=== PATIENT | male | born 1970 | race Caucasian/White ===

== ENCOUNTER 2024-03-14 08:48 | Emergency (ER) | payer OTHER ==
[2024-03-14] MEDS ORDERED: ASPIRIN 81 MG CHEWABLE TABLET ONE (09:18)
[2024-03-14 09:36] LABS: Absolute Basophils 0.1 K/uL (0-0.5); Absolute Eosinophils 0.3 K/uL (0-0.5); Absolute Lymphocytes (CBC) 1.5 K/uL (0.7-4.9); Absolute Monocytes 0.6 K/uL (0.1-1.3); Absolute Neutrophil 5.9 K/uL (1.8-8.0); Eosinophils % 4.1 % (0-4.4); Hematocrit 40.9 % (39.6-49.0); Hemoglobin 13.8 g/dL (13.6-17.9); Lymphocytes % 18.2 % (15.3-44.8); MCH 33.7 pg (27.0-35.0); MCHC 33.9 g/dL (32.0-36.0); MCV 99.4 fL (80-100); MPV 7.7 fL (7.6-11.3); Monocytes % 7.4 % (3.3-12.3); Neutrophils % 69.3 % (41.7-73.7); Nucleated Red Blood Cells % 0.1 % (0-0); Platelets 291 thou/uL (152-406); RBC Red Blood Cell Count 4.11 M/uL (4.33-5.43); Red Cell Distribution Width 13.2 % (12.1-15.2)
[2024-03-14 09:38] LABS: PT Prothrombin Time 10.5 SECONDS (9.4-12.5); Protime INR 0.94
[2024-03-14 09:57] LABS: ALT/SGPT 60 U/L (16-61); AST/SGOT 35 U/L (15-37); Albumin 3.6 g/dL (3.4-5.0); Alkaline Phosphatase 56 U/L (45-117); Anion Gap 7.6 mEq/L (5.0-15.0); BUN Blood Urea Nitrogen 11 mg/dL (7-18); Bicarbonate 28 mEq/L (21-32); Bilirubin Total 0.4 mg/dL (0.2-1.0); Globulin 3.6 g/dL (2.3-3.5); Glomerular Filtration Rate 76 ml/min (=/>90); Glucose Level 120 mg/dL (74-106); Lipase 36 U/L (13-75); Magnesium 2.2 mg/dL (1.6-2.4); Potassium 4.6 mEq/L (3.5-5.1); Protein, Total 7.2 g/dL (6.4-8.2); Sodium Level 140 mEq/L (136-145); Troponin High Sensitivity 6.2 pg/mL (<58.9)
[2024-03-14 09:58] LABS: Bilirubin Direct < 0.2 mg/dL (0-0.2); Bilirubin Indirect, Calculated 0.2 mg/dL (0.2-0.8); NT PRO-BNP < 5 pg/mL (<125)
--- NOTE | 2024-03-14 10:05 | RAD REPORT ---
EXAMINATION: ONE VIEW CHEST XR CLINICAL INDICATION: Male, 54 years old.,CHEST PAIN TECHNIQUE: Frontal chest projection is submitted. Examination is limited by patient positioning and t echnique. COMPARISON: 08/18/2007 FINDINGS: The lungs are well inflated and clear. No pneumothorax or sizable effusion. Mild cardiomegaly. Media stinal contours are unremarkable. IMPRESSION: No acute pulmonary process. Mild cardiomegaly.
[2024-03-14 10:31] LABS: Specific Gravity 1.025 (1.005-1.030); Sqamous Epithelial <5 /HPF (None Seen); Transitional Epithelial <5 /HPF (None Seen); Urine Bacteria None Seen /HPF (<20); Urine Bilirubin NEGATIVE (Negative); Urine Blood Negative (Negative); Urine Clarity Clear (Clear); Urine Color Light-Yellow (Yellow); Urine Culture Reflex Order NOT NEEDED; Urine Glucose NEGATIVE (Negative); Urine Ketones NEGATIVE (Negative); Urine Microscopic Reflex YN ORDER UMIC; Urine Mucus Slight /HPF (None Seen); Urine Nitrite NEGATIVE (Negative); Urine Protein TRACE (Negative); Urine RBC <5 /HPF (None Seen); Urine Urobilinogen Normal (Normal); Urine WBC <5 /HPF (<5)
[2024-03-14] MEDS ORDERED: IPRATROPIUM BROM 0.5MG/2.5ML ONE (10:44)
[2024-03-14] MEDS ORDERED: LEVALBUTEROL 1.25 MG/3 ML NEB ONE (10:44)
--- NOTE | 2024-03-14 11:59 | RAD REPORT ---
EXAM: Angio Aorta For Dissection HISTORY: [facility] MAIN na ABD PAIN Bed Name: 4 COMPARISON: None TECHNIQUE: Multiple contiguous axial images were obtained a CTA of the chest and abdomen with contras t per aortic dissection protocol. Sagittal and coronal 3-D MIP reformats were performed. One or more of the following dose reduction techniques were used: Automated exposure control, adjustment of the mA and kV according to patient size, and iterative reconstruction. Unless otherwise specified, incidental findings do not require dedicated imaging follow-up. FINDINGS: PULMONARY ARTERIES: Normal in caliber without filling defects to suggest pulmonary emboli. MEDIASTINUM: No hilar or mediastinal lymphadenopathy. LUNGS: No focal infiltrates or masses. PLEURAL SPACE: No pleural effusion or pneumothorax. LIVER: Diffuse parenchymal hypoattenuation suggesting steatosis. Small region of focal fatty sparing near the gallbladder bed. KIDNEYS: 7 mm nonobstructing right lower pole calculus. No hydronephrosis.. SPLEEN: Unremarkable. PANCREAS: Unremarkable. BOWEL: Unremarkable. RETROPERITONEUM: No lymphadenopathy BONES: Degenerative changes in the spine. Diastasis recti. Mild prostatomegaly. ASCENDING THORACIC AORTA: Normal caliber without evidence of dissection or aneurysmal dilatation. DESCENDING THORACIC AORTA: Normal caliber without evidence of dissection or aneurysmal dilatation. ABDOMINAL AORTA: Normal caliber without evidence of dissection or aneurysmal dilatation. CELIAC TRUNK: Patent SMA: Patent GERSON: Patent RENAL ARTERIES: Bilateral single renal arteries without significant atherosclerotic disease IMPRESSION: No evidence of thoracic or abdominal aortic aneurysm or dissection. Incidental findings including diffuse hepatic steatosis and the nonobstructing 7 mm right lower renal pole calculus.
--- NOTE | 2024-03-14 12:09 | RAD REPORT ---
EXAMINATION: US Abdomen Exam Limited CLINICAL HISTORY: [facility] MAIN Y ABD PAIN Bed Name: 4 COMPARISON: None. TECHNIQUE: Limited upper abdominal grayscale and color flow sonographic images. FINDINGS: Gallbladder: Decompressed limiting evaluation. No evidence of calculi, wall thickening, or pericholec ystic fluid. Bile ducts: No intrahepatic or extrahepatic biliary dilatation. Common bile duct measures 3 mm. Liver: Visualized portions of the liver demonstrate diffuse parenchymal echogenicity suggesting steat osis. Region of fatty sparing near the gallbladder bed. Fluid: No ascites. IMPRESSION: Contracted gallbladder limiting evaluation. No gallbladder or biliary duct abnormalities allowing for this. Diffuse hepatic steatosis.
--- NOTE | 2024-03-14 12:55 | EDPHYS ---
Physician Documentation [facility] Name: Senthil Sutton Age: 54 yrs Sex: Male : 1970 Arrival Date: 03/14/2024 Time: 08:48 Bed 4 Private MD: ED Physician Angel Hernandez HPI: 03/14 10:32 This 54 yrs old Male presents to ER via Ambulatory with complaints of Chest Pain, DIFF alexis MOVING. 10:32 The patient or guardian reports chest pain that is located primarily in the anterior alexis chest wall, chest diffusely. Onset: 5 day(s) ago. The pain does not radiate. Associated signs and symptoms: The patient has no apparent associated signs or symptoms. The chest pain is described as aching. Modifying factors: The symptoms are alleviated by nothing. the symptoms are aggravated by nothing. Severity of pain: At its worst the pain was mild in the emergency department the pain is unchanged. The patient has not experienced similar symptoms in the past. Historical: - Allergies: 08:59 No Known Allergies; ss - Home Meds: 08:59 aspirin 81 mg Oral tablet, delayed release (enteric coated) [Active]; telmisartan 80 mg ss oral tablet 1 tab daily [Active]; - PMHx: 08:59 Hypertension; ss - PSHx: 08:59 None; ss - Infectious Disease History:: Denies. - Social history:: Smoking status: Patient denies any tobacco usage or history of. - Family history:: not pertinent. ROS: 10:32 Constitutional: Negative for fever, chills, and weight loss, Eyes: Negative for injury, alexis pain, redness, and discharge, ENT: Negative for injury, pain, and discharge, Neck: Negative for injury, pain, and swelling, Cardiovascular: Negative for chest pain, palpitations, and edema, Abdomen/GI: Negative for abdominal pain, nausea, vomiting, diarrhea, and constipation, Back: Negative for injury and pain, : Negative for injury, bleeding, discharge, and swelling, MS/Extremity: Negative for injury and deformity, Skin: Negative for injury, rash, and discoloration, Neuro: Negative for headache, weakness, numbness, tingling, and seizure, Psych: Negative for depression, anxiety, suicide ideation, homicidal ideation, and hallucinations, Allergy/Immunology: Negative for hives, rash, and allergies, Endocrine: Negative for neck swelling, polydipsia, polyuria, polyphagia, and marked weight changes, Hematologic/Lymphatic: Negative for swollen nodes, abnormal bleeding, and unusual bruising, 10:32 Respiratory: Positive for cough, shortness of breath, wheezing, Exam: 10:32 Constitutional: This is a well developed, well nourished patient who is awake, alert, alexis and in no acute distress. Head/Face: Normocephalic, atraumatic. Eyes: Pupils equal round and reactive to light, extra-ocular motions intact. Lids and lashes normal. Conjunctiva and sclera are non-icteric and not injected. Cornea within normal limits. Periorbital areas with no swelling, redness, or edema. ENT: Nares patent. No nasal discharge, no septal abnormalities noted. Tympanic membranes are normal and external auditory canals are clear. Oropharynx with no redness, swelling, or masses, exudates, or evidence of obstruction, uvula midline. Mucous membranes moist. Neck: Trachea midline, no thyromegaly or masses palpated, and no cervical lymphadenopathy. Supple, full range of motion without nuchal rigidity, or vertebral point tenderness. No Meningismus. Chest/axilla: Normal chest wall appearance and motion. Nontender with no deformity. No lesions are appreciated. Cardiovascular: Regular rate and rhythm with a normal S1 and S2. No gallops, murmurs, or rubs. Normal PMI, no JVD. No pulse deficits. Respiratory: Lungs have equal breath sounds bilaterally, clear to auscultation and percussion. No rales, rhonchi or wheezes noted. No increased work of breathing, no retractions or nasal flaring. Abdomen/GI: Soft, non-tender, with normal bowel sounds. No distension or tympany. No guarding or rebound. No evidence of tenderness throughout. Back: No spinal tenderness. No costovertebral tenderness. Full range of motion. Male : Normal genitalia with no discharge or lesions. Skin: Warm, dry with normal turgor. Normal color with no rashes, no lesions, and no evidence of cellulitis. MS/ Extremity: Pulses equal, no cyanosis. Neurovascular intact. Full, normal range of motion., bilateral aka Neuro: Awake and alert, GCS 15, oriented to person, place, time, and situation. Cranial nerves II-XII grossly intact. Motor strength 5/5 in all extremities. Sensory grossly intact. Cerebellar exam normal. Normal gait. Psych: Awake, alert, with orientation to person, place and time. Behavior, mood, and affect are within normal limits. 10:32 ECG was reviewed by the Attending Physician. 10:32 Musculoskeletal/extremity: Extremities: all appear grossly normal, with no appreciated pain with palpation, ROM: no acute changes, intact in all extremities, full active range of motion, full passive range of motion, Circulation is intact in all extremities. Sensation intact. Compartment Syndrome exam of affected extremity: is normal. DVT Exam: No signs of deep vein thrombosis. no pain, no swelling, no tenderness, negative Homans' sign noted on exam, no appreciated bluish discoloration, no erythema, no increased warmth, 12:57 ECG was reviewed by the Attending Physician. [facility] Vital Signs: 08:56 BP 173 / 89; Pulse 95; Resp 18; Temp 98.3(O); Pulse Ox 97% on R/A; Weight 113.4 kg; ss Height 5 ft. 9 in. ; Pain 1/10; 09:33 BP 166 / 96; Pulse 89; Resp 16; Pulse Ox 94% on R/A; hb 10:32 BP 166 / 87; Pulse 82; Resp 17; Pulse Ox 95% on R/A; MAP 105 mmHg; Pain 0/10; tm6 13:17 BP 159 / 102; Pulse 93; Resp 18; Temp 98.3; Pulse Ox 94% on R/A; MAP 118 mmHg; Pain tm6 0/10; 08:56 Body Mass Index 36.92 (113.40 kg, 175.26 cm) 08:56 Pain Scale: Adult ss 10:32 Pain Scale: Adult tm6 13:17 Pain Scale: Adult tm6 MDM: 09:03 Medical Screening Exam initiated [facility] 10:34 Differential diagnosis: abnormal EKG, acute myocardial infarction, acute pericarditis, alexis anxiety, coronary artery disease chest wall pain, congestive heart failure Cholelithiasis costochondritis, esophagitis, myocarditis, pancreatitis, peptic ulcer disease, pericarditis, pleurisy, pneumonia, pulmonary embolus, stable angina, thoracic aortic disection, unstable angina. HEART Score: History: Slightly Suspicious (0), ECG: Non specific repolarization disturbance / LBTB / PM (1), Age: > 45 and < 65 years (1), Risk Factors: > or = 3 Risk factors for atherosclerotic disease (2), [Hypertension] [+ Family HX] [Obesity] Troponin: < or = 1 x Normal Limit (0). The patient was given aspirin in the Emergency Department. JOHNNY Risk Score: 1 - Three or more CAD risk factors. Data reviewed: vital signs, nurses notes, lab test result(s), EKG, radiologic studies, CT scan, plain films. Consideration of Admission/Observation Escalation of care including admission/observation considered. I considered the following discharge prescriptions or medication management in the emergency department Medications were administered in the Emergency Department. See MAR. Independent interpretation of the following test(s) in the Emergency Department EKG: See my EKG interpretation above. Test considered but Not performed: MRI: no mrcp. Care significantly affected by the following chronic conditions: Hypertension, Obesity. Counseling: I had a detailed discussion with the patient and/or guardian regarding the historical points, exam findings, and any diagnostic results supporting the discharge/admit diagnosis, the presence of at least one elevated blood pressure reading (>120/80) during this emergency department visit, lab results, radiology results, the need for outpatient follow up, for definitive care, a nail kegger, a family practitioner. 03/14 08:58 Order name: Basic Metabolic Panel; Complete Time: 10:22 03/14 08:58 Order name: CBC with Diff; Complete Time: 10:22 03/14 08:58 Order name: LFT's; Complete Time: 10:22 03/14 08:58 Order name: Magnesium; Complete Time: 10:22 03/14 08:58 Order name: NT PRO-BNP; Complete Time: 10:22 03/14 08:58 Order name: PT-INR; Complete Time: 10:22 03/14 08:58 Order name: Troponin HS; Complete Time: 10:22 03/14 08:58 Order name: Lipase; Complete Time: 10:22 03/14 08:58 Order name: Urinalysis w/ reflexes; Complete Time: 10:38 03/14 10:37 Order name: Troponin High Sensitivity; Complete Time: 11:34 03/14 08:58 Order name: XRAY Chest (1 view); Complete Time: 10:22 03/14 10:32 Order name: CT Aorta for Dissection: ro pe, dissection; Complete Time: 12:34 [facility] 03/14 10:37 Order name: Echo w/ Doppler [facility] 03/14 10:37 Order name: US Abdomen Limited; Complete Time: 12:34 [facility] 03/14 08:58 Order name: EKG; Complete Time: 08:58 [facility] 03/14 08:58 Order name: Cardiac monitoring; Complete Time: 09:29 [facility] 03/14 08:58 Order name: EKG - Nurse/Tech; Complete Time: 09:29 [facility] 03/14 08:58 Order name: IV Saline Lock; Complete Time: 09:29 [facility] 03/14 08:58 Order name: Labs collected and sent; Complete Time: 09:29 [facility] 03/14 08:58 Order name: O2 Per Protocol; Complete Time: 09:29 [facility] 03/14 08:58 Order name: O2 Sat Monitoring; Complete Time: 09:29 [facility] 03/14 11:06 Order name: EKG - Nurse/Tech; Complete Time: 12:10 [facility] EC:32 Rate is 91 beats/min. Rhythm is regular. QRS Crane is Normal. PA interval is normal. QRS alexis interval is normal. QT interval is normal. No Q waves. T waves are Normal. No ST changes noted. Clinical impression: NSR w/ Non-specific ST/T Changes and No evidence of ischemia. Interpreted by me. Reviewed by me. 12:57 Rate is 91 beats/min. Rhythm is regular. QRS Crane is Normal. PA interval is normal. QRS alexis interval is normal. QT interval is normal. No Q waves. T waves are Normal. No ST changes noted. Clinical impression: NSR w/ Non-specific ST/T Changes and No evidence of ischemia. Interpreted by me. Reviewed by me. Administered Medications: 09:35 Drug: Aspirin PO Chewable Tablet 162 mg PO once Route: PO; iw 10:04 Follow up: Response: No adverse reaction tm6 11:26 Drug: Levalbuterol Inhalation 2.5 mg Inhalation once Route: Inhalation; tm6 12:10 Follow up: Response: No adverse reaction tm6 11:26 Drug: Ipratropium Inhalation Aerosol 0.5 mg Inhalation once Route: Inhalation; tm6 12:10 Follow up: Response: No adverse reaction tm6 13:16 Drug: ToPROL XL PO 25 mg PO once Route: PO; tm6 13:16 Follow up: Response: Medication administered at discharge. tm6 Disposition Summary: 03/14/24 12:54 Discharge Ordered Notes: Location: Home alexis Problem: new alexis Symptoms: have improved alexis Condition: Stable alexis Diagnosis - Chest pain on breathing alexis - Chest pain, unspecified alexis - Essential (primary) hypertension alexis - Obesity, unspecified - fatty liver alexis - Abnormal findings on diagnostic imaging of other specified body structures - 7 mm alexis right renal calculi - Cardiomegaly alexis Followup: alexis - With: Private Physician - When: 2 - 3 days - Reason: Recheck today's complaints, Continuance of care, Re-evaluation by your physician Followup: alexis - With: Jose Raul Roche MD - When: 2 - 3 days - Reason: Recheck today's complaints, Re-evaluation by your physician Discharge Instructions: - Discharge Summary Sheet alexis - Nonspecific Chest Pain, Adult alexis - Hypertension, Adult alexis - Kidney Stones alexis - Obesity, Adult alexis - Kidney Stones, [id number] alexis - Nonspecific Chest Pain, Adult, Glnf-[id number] alexis - Hypertension, Adult, [id number] alexis - Fatty Liver Disease alexis - How to Take Your Blood Pressure, [id number] alexis - Aspirin and Your Heart alexis - Managing Your Hypertension alexis - Obesity, Adult, [id number] alexis - Nonalcoholic Fatty Liver Disease Diet, Adult alexis Forms: - Medication Reconciliation Form alexis - Antibiotic Education alexis - Prescription Opioid Use alexis - Patient Portal Instructions alexis - Leadership Thank You Letter [facility] Prescriptions: - Potassium Chloride 20 meq Oral Packet - take 1 packet ORAL route once daily 1 packet in 6 (six) ounces of water or alexis juice; Take after meal; 20 packet; Refills: 0, Product Selection Permitted - Toprol XL 25 mg Oral Tablet - take 1 tablet ORAL route once daily; 20 tablet; Refills: 0, Product Selection alexis Permitted - Cipro 500 mg Oral Tablet - take 1 tablet ORAL route every 12 hours for 7 days; 14 tablet; Refills: 0, alexis Product Selection Permitted - Hydrochlorothiazide 12.5 mg Oral capsule - take 1 tablet ORAL route once daily; 20 tablet; Refills: 0, Product Selection alexis Permitted Signatures: Dispatcher [employer] Angel Ospina MD MD cha Williams, Irene, RN RN Amy Vincent RN RN ss Janny Antonio RN RN Alicia Wall, RN RN tm6
--- NOTE | 2024-03-14 12:55 | ER ---
Nurse's Notes [facility] Name: Senthil Sutton Age: 54 yrs Sex: Male : 1970 Arrival Date: 03/14/2024 Time: 08:48 Bed 4 Private MD: Diagnosis: Chest pain on breathing;Chest pain, unspecified;Essential (primary) hypertension;Obesity, unspecified-fatty liver;Abnormal findings on diagnostic imaging of other specified body structures-7 mm right renal calculi;Cardiomegaly Presentation: 03/14 08:56 Chief complaint: Patient states: episodic difficulty breathing and wheezing that ss improves with stretching x 1 month. Pt reports that at times he has a mild pain in his chest as well. Coronavirus screen: Client denies travel out of the [place] in the last 14 days. Ebola Screen: Patient denies exposure to infectious person. Patient denies travel to an Ebola-affected area in the 21 days before illness onset. Initial Sepsis Screen: Does the patient meet any 2 criteria? No. Patient's initial sepsis screen is negative. Does the patient have a suspected source of infection? No. Patient's initial sepsis screen is negative. Risk Assessment: Do you want to hurt yourself or someone else? Patient reports no desire to harm self or others. Onset of symptoms was February 08, 2024. 08:56 Method Of Arrival: Ambulatory ss 08:56 Acuity: KRISTINA 3 ss Historical: - Allergies: 08:59 No Known Allergies; ss - Home Meds: 08:59 aspirin 81 mg Oral tablet, delayed release (enteric coated) [Active]; telmisartan 80 mg ss oral tablet 1 tab daily [Active]; - PMHx: 08:59 Hypertension; ss - PSHx: 08:59 None; ss - Infectious Disease History:: Denies. - Social history:: Smoking status: Patient denies any tobacco usage or history of. - Family history:: not pertinent. Screenin:30 [facility] ED Fall Risk Assessment (Adult) History of falling in the last 3 months, iw including since admission No falls in past 3 months (0 pts) Confusion or Disorientation No (0 pts) Intoxicated or Sedated No (0 pts) Impaired Gait No (0 pts) Mobility Assist Device Used No (0 pt) Altered Elimination No (0 pt) Score/Fall Risk Level 0 - 2 = Low Risk Oriented to surroundings. Abuse screen: Denies injuries from another. Nutritional screening: No deficits noted. Tuberculosis screening: No symptoms or risk factors identified. Assessment: 09:30 General: Appears in no apparent distress. Behavior is calm, cooperative. Pain: iw Complains of pain in anterior aspect of right upper chest Pain does not radiate. Pain began 1 day ago. Neuro: Level of Consciousness is awake, alert, obeys commands, Oriented to person, place, time, situation, Moves all extremities. Full function. Cardiovascular: Reports chest pain, shortness of breath, Patient's skin is warm and dry. Respiratory: Airway is patent Respiratory effort is even, unlabored. 10:31 Reassessment: Patient and/or family updated on plan of care and expected duration. Pain tm6 level reassessed. Patient is alert, oriented x 3, equal unlabored respirations, skin warm/dry/pink. 13:17 Reassessment: Patient and/or family updated on plan of care and expected duration. Pain tm6 level reassessed. Patient is alert, oriented x 3, equal unlabored respirations, skin warm/dry/pink. Vital Signs: 08:56 BP 173 / 89; Pulse 95; Resp 18; Temp 98.3(O); Pulse Ox 97% on R/A; Weight 113.4 kg; ss Height 5 ft. 9 in. ; Pain 1/10; 09:33 BP 166 / 96; Pulse 89; Resp 16; Pulse Ox 94% on R/A; hb 10:32 BP 166 / 87; Pulse 82; Resp 17; Pulse Ox 95% on R/A; MAP 105 mmHg; Pain 0/10; tm6 13:17 BP 159 / 102; Pulse 93; Resp 18; Temp 98.3; Pulse Ox 94% on R/A; MAP 118 mmHg; Pain tm6 0/10; 08:56 Body Mass Index 36.92 (113.40 kg, 175.26 cm) ss 08:56 Pain Scale: Adult ss 10:32 Pain Scale: Adult tm6 13:17 Pain Scale: Adult tm6 ED Course: 08:51 Patient arrived in ED. mg5 08:57 Angel Hernandez MD is Attending Physician. alexis 08:59 Triage completed. ss 08:59 Arm band placed on left wrist. ss 09:15 Delphine Snyder, RN is Primary Nurse. iw 09:29 Inserted saline lock: 20 gauge in right antecubital area, using aseptic technique. iw Blood collected. Flushed with 10 mL NS. Patient maintains SpO2 saturation greater than 95% on room air. 09:30 Initial lab(s) drawn, by ED staff, sent to lab. hb 09:34 Patient has correct armband on for positive identification. Provided Education on: use hb of call light . Client placed on continuous cardiac and pulse oximetry monitoring. NIBP monitoring applied. room service waiter/waitress on. Pulse ox on. NIBP on. 09:39 XRAY Chest (1 view) In Process Unspecified. EDMS 10:19 Urinalysis w/ reflexes Sent. tm6 10:51 CT Aorta for Dissection: ro pe, dissection In Process Unspecified. EDMS 11:25 US Abdomen Limited In Process Unspecified. EDMS 12:11 EKG done, by ED staff, reviewed by Angel Hernandez MD. tm6 12:53 Jose Raul Roche MD is Referral Physician. alexis 13:17 No provider procedures requiring assistance completed. IV discontinued, intact, tm6 bleeding controlled, No redness/swelling at site. Pressure dressing applied. Administered Medications: 09:35 Drug: Aspirin PO Chewable Tablet 162 mg PO once Route: PO; iw 10:04 Follow up: Response: No adverse reaction tm6 11:26 Drug: Levalbuterol Inhalation 2.5 mg Inhalation once Route: Inhalation; tm6 12:10 Follow up: Response: No adverse reaction tm6 11:26 Drug: Ipratropium Inhalation Aerosol 0.5 mg Inhalation once Route: Inhalation; tm6 12:10 Follow up: Response: No adverse reaction tm6 13:16 Drug: ToPROL XL PO 25 mg PO once Route: PO; tm6 13:16 Follow up: Response: Medication administered at discharge. tm6 Medication: 09:30 VIS not applicable for this client. iw Outcome: 12:54 Discharge ordered by . alexis 13:17 Discharged to home ambulatory, with family, tm6 13:17 Condition: stable 13:17 Discharge instructions given to patient, family, Instructed on discharge instructions, follow up and referral plans. medication usage, Demonstrated understanding of instructions, follow-up care, medications, Prescriptions given X 4, 13:18 Patient left the ED. tm6 Signatures: Dispatcher [employer] EDMS Angel Hernandez MD MD cha Williams, Irene, RN RN Amy Falk, RN RN ss Janny Antonio, RN RN Georgina Ho mg5 Alicia Wall, RN RN tm6
[2024-03-14] MEDS ORDERED: METOPROLOL XL 50 MG TAB PO ONE (13:06)
[2024-03-14 14:13] VITALS: TEMP 98.3
[2024-03-14 14:26] VITALS: BP 159/102; O2SAT 94
--- NOTE | 2024-03-17 10:43 | ECHO ---
HEIGHT: 5 ft 9 in WEIGHT: 250 lb 0 oz DATE OF STUDY: 03/14/[address]: Angel Hernandez MD 2-DIMENSIONAL: YES M.MODE: YES DOPPLER: YES COLOR FLOW: YES TDS: YES PORTABLE: YES DEFINITY: NO BUBBLE STUDY: NO DIAGNOSIS: SHORTNESS OF BREATH CARDIAC HISTORY: CATHERIZATION: SURGERY: PROSTHETIC VALVE: PACEMAKER: MEASUREMENTS (cm) DIASTOLIC (NORMALS) SYSTOLIC (NORMALS) IVSd 1.3 (0.6-1.2) LA Diam 3.9 (1.9-4.0) LVEF 59% LVIDd 5.2 (3.5-5.7) LVIDs 3.6 (2.0-3.5) %FS 32% LVPWd 1.2 (0.6-1.2) Ao Diam 3.0 (2.0-3.7) 2 DIMENSIONAL ASSESSMENT: RIGHT ATRIUM: NORMAL LEFT ATRIUM: NORMAL RIGHT VENTRICLE: NORMAL LEFT VENTRICLE: NORMAL TRICUSPID VALVE: NORMAL MITRAL VALVE: NORMAL PULMONIC VALVE: MILD PULMONIC INSUFFICIENCY AORTIC VALVE: NORMAL PERICARDIAL EFFUSION: NONE AORTIC ROOT: NORMAL LEFT VENTRICULAR WALL MOTION: NORMAL. DOPPLER/COLOR FLOW: MILD PULMONIC INSUFFICIENCY. COMMENTS: 1. NORMAL LEFT VENTRICULAR EJECTION FRACTION 55-60%. 2. NORMAL WALL MOTION. 3. MILD PULMONIC INSUFFICIENCY. TECHNOLOGIST: REYES FLANAGAN
== END 2024-03-14 13:18 | disposition home or self-care (01) ==
LOC: ER 08:48
DX: R07.1 Chest pain on breathing (principal); I10 Essential (primary) hypertension; I51.7 Cardiomegaly; K76.0 Fatty (change of) liver, not elsewhere classified; N20.0 Calculus of kidney
CPT/HCPCS: 93306; 85025; 81001; 80048; 36415; 83735; 85610; 80076; 84484 ×2; 83690; 83880; 71275; 74175; 71045; 76705; 99285; Q9967; J7614; J7644